=== PATIENT | female | born 1990 | race Asian ===

== ENCOUNTER → 2022-09-21 | Day surgery (SDC) | payer BC ==
--- NOTE | 2022-09-21 09:38 | RAD REPORT ---
EXAM DESCRIPTION: US - Guided FNA Non Breast - 09/21/2022 9:10 am CLINICAL HISTORY: E07.9 COMPARISON: No comparisons FINDINGS: Preoperative diagnosis: Right thyroid nodule. Post operative diagnosis: Same. Conscious Sedation: None Fluoroscopy time: None Contrast used: None Estimated blood loss: Minimal Specimens:5 fine-needle aspirates The right neck was prepped and draped in the usual sterile fashion. 1% lidocaine was infiltrated into the subcutaneous tissues for local anesthesia. Real time ultrasound scanning of the right thyroid d emonstrated thyroid nodule. Five fine needle aspirates were obtained. There were no complications. IMPRESSION: Technically successful ultrasound-guided fine-needle aspiration of a suspicious right th yroid nodule. No immediate complications.
== END ==
LOC: FNA 07:50 → EDSTATUS 08:00
PROVIDERS: ATTEND Family Medicine
PROC: 0GBH3ZX Excision of Right Thyroid Gland Lobe, Percutaneous Approach, Diagnostic (ICD-10-PCS; principal; 2022-09-21)
DX: C73 Malignant neoplasm of thyroid gland (principal)
CPT/HCPCS: 88162